=== PATIENT | female | born 1950 | race Two or more races ===

== ENCOUNTER → 2023-07-22 | Outpatient (CLI) | payer MEDICARE ==
--- NOTE | 2023-07-23 09:56 | MR ---
EXAMINATION TYPE: MR kidney wo/w con DATE OF EXAM: 07/22/2023 2:21 PM CLINICAL INDICATION:Female, 72 years old with history of N28.89 DISORDERS OF KIDNEY AND URETER; PHH, Renal mass, Renal cyst, Hx Rt kidney cancer, COMPARISON: CT scan abdomen from 06/20/2023.. TECHNIQUE: Multiplanar multi-sequence imaging was performed without contrast. Post contrast imaging was performed. Post IV contrast subtraction images were also submitted for review. IV Contrast: 7.5 cc Gadavist FINDINGS: LOWER CHEST: No gross irregularity. ABDOMEN Liver: No evidence for hepatic steatosis or cirrhosis. Signal dropout on chemical shift in phase imag ing. Gallbladder and Bile ducts: No evidence for ductal dilation, or biliary stricture or evidence of chol edocholithiasis. The gallbladder is within normal limits. Pancreas: No ductal dilation. No evidence for solid mass. Spleen: Normal for size. Signal dropout on chemical shift in phase imaging. Adrenal glands: Unremarkable. Kidneys: Mildly complex right superior pole cyst measuring 18 x 11 mm which is higher T2 signal and s lightly heterogenous. This is lower T1 signal. There is postcontrast enhancement which progresses on delayed imaging. Scattered foci of high T1 signal without postcontrast enhancement are seen throughout the bilateral k idneys compatible with proteinaceous/hemorrhagic cyst. Example includes 5 mm left and 3 mm right cyst . No evidence for obstructive uropathy. No left suspicious renal masses. Stomach and Bowel: No evidence for bowel wall thickening or evidence for obstruction. Large amount of stool seen within the colon. Peritoneum: No evidence of pneumoperitoneum or free fluid. Vasculature: No aortic aneurysm. Musculoskeletal: The osseous structures appear intact. Lymph Nodes: No gross evidence for lymphadenopathy. Abdominal wall: Unremarkable. IMPRESSION: Enhancing right superior pole 18 x 11 renal lesion concerning for malignancy until proven otherwise. Urology consultation recommended. Iron deposition within the liver and spleen. Bilateral proteinaceous/hemorrhagic cysts.
== END | disposition home or self-care (01) ==
LOC: RADMRIMAIN 13:23
PROVIDERS: ATTEND Urology
DX: N28.1 Cyst of kidney, acquired (principal); N28.89 Other specified disorders of kidney and ureter
CPT/HCPCS: 74183; A9585